=== PATIENT | female | born 1990 | race Caucasian/White ===

== ENCOUNTER → 2016-08-29 | Outpatient (CLI) | payer BC ==
[~2016-08-29] MED LIST: BCPILLS PO; IBUP600T44 PO; [UNRECOGNIZED DRUG - OTHER]
== END | disposition home or self-care (01) ==
LOC: C.LABSPEC 11:51
PROVIDERS: ATTEND Obstetrics & Gynecology
DX: Z01.419 Encounter for gynecological examination (general) (routine) without abnormal findings (principal)

== ENCOUNTER → 2016-09-23 | Outpatient (CLI) | payer BC ==
[2016-09-23 10:42] LABS: CALCULATED INSULIN SENSITIVITY 0.348; GLUCOSE LOG 1.9542; INSULIN FASTING 8.3 mU/L (3-25); INSULIN LOG 0.9191
== END | disposition home or self-care (01) ==
LOC: C.LAB1850 07:51
PROVIDERS: ATTEND Obstetrics & Gynecology
DX: Z31.41 Encounter for fertility testing (principal)

== ENCOUNTER → 2016-12-01 | Outpatient (CLI) | payer BC | LOC: C.LAB1850 07:32 | PROVIDERS: ATTEND Obstetrics & Gynecology | DX: Z31.41 Encounter for fertility testing (principal) ==

== ENCOUNTER → 2017-01-02 | Outpatient (CLI) | payer BC | END | disposition home or self-care (01) | LOC: C.LAB1850 10:15 | PROVIDERS: ATTEND Obstetrics & Gynecology | DX: Z32.01 Encounter for pregnancy test, result positive (principal) ==

== ENCOUNTER → 2017-02-10 | Outpatient (CLI) | payer BC ==
[2017-02-10 12:04] LABS: URINE APPEARANCE CLEAR (CLEAR); URINE BILIRUBIN NEG (NEG); URINE COLOR YELLOW; URINE NITRITE NEG (NEG); URINE PH 6.5 (4.5-7.5); URINE SPECIFIC GRAVITY 1.012 (1.000-1.030); UROBILINOGEN NEG (NEG)
[2017-02-10 12:13] LABS: MANUAL MICROSCOPIC REQUIRED? NO; REVIEW REQ? NO
== END | disposition home or self-care (01) ==
LOC: C.LABSPEC 11:08
PROVIDERS: ATTEND Obstetrics & Gynecology
DX: O09.01 Supervision of pregnancy with history of infertility, first trimester (principal); Z3A.00 Weeks of gestation of pregnancy not specified

== ENCOUNTER → 2017-02-17 | Outpatient (CLI) | payer BC ==
[2017-02-17 09:35] LABS: BASO % 0.2 %; BASO ABS # 0.01 K/uL (0-0.2); COMPLETE YES; EOS % 1.1 %; HEMATOCRIT 37.9 % (37-47); IG% 0.3 %; LYMPH % 24.5 %; LYMPH ABS # 1.62 K/uL (1.2-3.4); MEAN CELL VOLUME 89.4 fL (80-100); MEAN CORPUSCULAR HEMOGLOBIN 32.1 pg (25-34); MEAN CORPUSCULAR HGB CONC 35.9 g/dl (32-36); MEAN PLATELET VOLUME 9.2 fL (7.4-10.4); MONO % 8.3 %; NEUT % 65.6 %; PLATELET COUNT 216 K/uL (130-400); RED BLOOD COUNT 4.24 M/uL (4.2-5.4); WHITE BLOOD COUNT 6.62 K/uL (4.8-10.8)
[2017-02-20 08:03] LABS: CHLAMYDIA TRACH RNA*** NOT DETECTED (NOT DETECTED); GC (NEIS GONORRHOEAE)RNA** NOT DETECTED (NOT DETECTED)
== END | disposition home or self-care (01) ==
LOC: C.LAB1850 08:48
PROVIDERS: ATTEND Obstetrics & Gynecology
DX: O09.01 Supervision of pregnancy with history of infertility, first trimester (principal); Z3A.00 Weeks of gestation of pregnancy not specified

== ENCOUNTER → 2017-03-17 | Outpatient (CLI) | payer BC ==
[2017-03-17 11:43] LABS: GTGD 50 Grams
== END | disposition home or self-care (01) ==
LOC: C.LAB1850 09:10
PROVIDERS: ATTEND Obstetrics & Gynecology
DX: O09.01 Supervision of pregnancy with history of infertility, first trimester (principal)

== ENCOUNTER → 2017-06-13 | Outpatient (CLI) | payer BC ==
[~2017-06-13] MED LIST changes: +MTR600X PO; +OXYC-57 PO; +PRENTAB26 PO
[2017-06-13 10:08] LABS: HEMATOCRIT 32.3 % (37-47); HEMOGLOBIN 11.4 g/dL (12.0-16.0)
== END | disposition home or self-care (01) ==
LOC: C.LAB1850 08:45
PROVIDERS: ATTEND Obstetrics & Gynecology
DX: O09.02 Supervision of pregnancy with history of infertility, second trimester (principal); Z3A.00 Weeks of gestation of pregnancy not specified

== ENCOUNTER → 2017-08-04 | Outpatient (CLI) | payer BC ==
[~2017-08-04] MED LIST changes: -MTR600X PO; -OXYC-57 PO; -PRENTAB26 PO
== END | disposition home or self-care (01) ==
LOC: C.LABSPEC 10:47
PROVIDERS: ATTEND Obstetrics & Gynecology
DX: O09.03 Supervision of pregnancy with history of infertility, third trimester (principal)

== ENCOUNTER 2017-08-13 23:28 | Inpatient (IN) | payer BC ==
[~2017-08-13] VITALS: Ht 157.5 cm; Wt 73.5 kg
[2017-08-14] VITALS (16 sets, daily range): BP systolic 106–126; BP diastolic 56–78; PULSE 62–94; TEMP 36.4–37.1; O2SAT 94–97; Ht 157.5 cm; Wt 73.5 kg
[2017-08-14] MEDS ORDERED: CITRIC ACID/SODIUM CITRATE 15 ML UDC PO ONE
[2017-08-14] MEDS ORDERED: PRENTAB26 PO (00:10)
[2017-08-14] MEDS ORDERED: CEFAZOLIN IV 2,000 MG in SYRINGE 0 ML IV STA (00:10)
--- NOTE | 2017-08-14 00:24 | HISTORY & PHYSICAL EXAMINATION ---
DATE OF ADMISSION: 08/14/2017 HISTORY OF PRESENT ILLNESS: Randa presented to labor and delivery with spontaneous rupture of membranes at 37 weeks and 3 days. She was in a breech position. This was noted by Dr. Soriano at her last visit. She had been scheduled for a , unfortunately her water broke tonight and this was confirmed with [facility]. HISTORY: Uncomplicated. This is her first . PAST MEDICAL HISTORY: Healthy. No major surgeries and no major illnesses. ALLERGIES: No medication allergies. SOCIAL HISTORY: Nonsmoker, nondrinker. FAMILY HISTORY: Negative. PHYSICAL EXAMINATION: VITAL SIGNS: Stable. She is afebrile. Her blood pressure is stable and her weight is 161 pounds. CHEST: Clear. CARDIOVASCULAR: Normal rate and rhythm. No audible murmur. ABDOMEN: Gravid. heart rate tones reactive. CERVIX: Not assessed at this time. Ultrasound confirms breech presentation. IMPRESSION AND PLAN: Recommend section for rupture of membranes and breech presentation. Discussed risks including but not limited to the risks of bleeding, infection, injury to bowel, bladder, ureter, vessels, deep vein thrombosis and pulmonary embolus. Discussed alternatives, though I do not recommend labor in primary breech setting. The patient agrees. We will make arrangements for low segment transverse section.
[2017-08-14 00:25] LABS: BASO % 0.3 %; BASO ABS # 0.02 K/uL (0-0.2); EOS % 0.8 %; EOS ABS # 0.06 K/uL (0-0.5); HEMATOCRIT 35.1 % (37-47); HEMOGLOBIN 12.8 g/dL (12.0-16.0); IG# 0.06 K/uL (0.00-0.02); LYMPH % 24.2 %; LYMPH ABS # 1.92 K/uL (1.2-3.4); MEAN CELL VOLUME 90.2 fL (80-100); MEAN CORPUSCULAR HEMOGLOBIN 32.9 pg (25-34); MEAN PLATELET VOLUME 9.7 fL (7.4-10.4); MONO % 9.7 %; MONO ABS # 0.77 K/uL (0.11-0.59); NEUT % 64.2 %; NEUT ABS # 5.12 K/uL (1.4-6.5); PLATELET COUNT 172 K/uL (130-400); RED CELL DISTRIBUTION WIDTH CV 13.1 % (11.5-14.5); RED CELL DISTRIBUTION WIDTH SD 42.8 fL (36.4-46.3); WHITE BLOOD COUNT 7.95 K/uL (4.8-10.8)
[2017-08-14 00:31] LABS: MEAN CORPUSCULAR HGB CONC 36.5 g/dl (32-36)
[2017-08-14] MEDS ORDERED: OXYTOCIN INJ 10 UNITS/ML VIAL ONE (00:31)
[2017-08-14] MEDS ORDERED: FENTANYL CITRATE INJ 50 MCG/1 ML 2 ML VIAL ONE (00:32)
[2017-08-14] MEDS ORDERED: MoRPHine SULFATE PF 1 MG/ML 10 ML AMP/VIAL ONE (00:33)
[2017-08-14] MEDS ORDERED: EpHEDrine SULFATE 50MG/5ML SYR ONE (01:21)
[2017-08-14] MEDS ORDERED: PHENYLEPHRINE 100MCG/ML 5ML SYR ONE (01:21)
[2017-08-14] MEDS ORDERED: LACTATED RINGER'S 1000ML 1,000 ML IV SCH ×2 (01:46)
[2017-08-14] MEDS ORDERED: OXYTOCIN INJ 20 UNITS in LACTATED RINGER'S 1000ML 1,000 ML IV SCH (01:46)
--- NOTE | 2017-08-14 01:48 | [facility] Post Operative Brief Note ---
Immediate Operative Summary Operative Date Aug 14, 2017. Pre-Operative Diagnosis PRIMARY CAESAREAN SECTION FOR BREECH PRESENTATION AT 37.4 WEEKS GESATION RUPTURE OF MEMBRANES Post-Operative Diagnosis SAME ABOVE Procedure(s) Performed CAESAREAN SECTION low transverse DELIVERED VIABLE MALE [address] SALAZAR Dimpling Machine Operator Surgeon(s) . Estimated Blood Loss 500ml Findings Consistent with Post-Op Diagnosis Specimens PLACENTA-HOLD Drains Choudhary Anesthesia Type L&D Only EPID Exist Disposition Accompanied Pt To Recover: no Disposition: L&D
[2017-08-14] MEDS ORDERED: LACTATED RINGER'S 1000ML 500 ML IV PRN (01:56)
[2017-08-14] MEDS ORDERED: NALOXONE HCL INJ 0.08 MG in SYRINGE 1.8 ML IV PRN (01:56)
[2017-08-14] MEDS ORDERED: NALOXONE HCL INJ 1 MG in SODIUM CHLORIDE 0.9% 1000ML 1,000 ML IV PRN ×4 (01:56)
[2017-08-14] MEDS ORDERED: SODIUM CHLORIDE 0.9% 1000ML 1,000 ML IV PRN (01:56)
[2017-08-14] MEDS ORDERED: HYDROCORTISONE ACETATE 25 MG SUPP PR PRN (02:00)
[2017-08-14] MEDS ORDERED: NO NARCOTICS OR SEDATIVES SCH (02:00)
[2017-08-14] MEDS ORDERED: NALBUPHINE HCL INJ 10 MG/ML AMP IV PRN (02:00)
[2017-08-14] MEDS ORDERED: EpHEDrine SULFATE INJ 50 MG/ML AMP IV PRN (02:00)
[2017-08-14] MEDS ORDERED: PROMETHAZINE HCL INJ 25 MG in SODIUM CHLORIDE 0.9% 50ML 50 ML IV PRN ×2 (02:00→20:00)
[2017-08-14] MEDS ORDERED: MoRPHine SULFATE PF 1 MG/ML 10 ML AMP/VIAL EPI PRN (02:00)
[2017-08-14] MEDS ORDERED: BENZOCAINE 20% AER SPR 82.5 GM CAN EXT PRN (02:00)
[2017-08-14] MEDS ORDERED: SENNA 8.6 MG TAB PO PRN (02:00)
[2017-08-14] MEDS ORDERED: DiphenhydrAMINE HCL 50 MG/ML VIAL IV PRN ×2 (02:00→20:00)
[2017-08-14] MEDS ORDERED: SUPERCREAM 0.870 % 15GM JAR EXT PRN (02:00)
[2017-08-14] MEDS ORDERED: MAGNESIUM HYDROXIDE SUSP 30 ML UDC PO PRN (02:00)
[2017-08-14] MEDS ORDERED: ONDANSETRON INJ 2 MG/ML 2 ML VIAL IV PRN ×2 (02:00→20:00)
[2017-08-14] MEDS ORDERED: LANOLIN OINT EXT PRN (02:00)
[2017-08-14] MEDS ORDERED: NALOXONE HCL 0.4 MG/1 ML VIAL/CARP IV PRN (02:00)
--- NOTE | 2017-08-14 02:03 | Anesthesiology Progress Note ---
Anesthesia Post Op Note Date & Time Aug 14, 2017 at 02:02 Notes Mental Status: alert / awake / arousable, participated in evaluation Pt Amnestic to Procedure: Yes Nausea / Vomiting: adequately controlled Pain: adequately controlled Airway Patency, RR, SpO2: stable & adequate BP & HR: stable & adequate Hydration State: stable & adequate Neuraxial Anesthesia: was administered, sensory block is resolving Anesthetic Complications: no major complications apparent pt had anesthetic level to pinprick at T 10
--- NOTE | 2017-08-14 02:07 | OPERATIVE REPORT ---
DATE OF OPERATION: 08/14/2017 PREOPERATIVE DIAGNOSIS: Breech presentation, premature rupture of membranes at 37-1/2 weeks. POSTOPERATIVE DIAGNOSIS: Same. PROCEDURE: Low segment transverse section. SURGEON: Kentrell Scott MD. CHEESE PRODUCTION SUPERVISOR: None. ESTIMATED BLOOD LOSS: 500 mL. FINDINGS: Consistent with postoperative diagnosis. SPECIMENS: Cord gases and placenta. DRAINS: Choudhary catheter. ANESTHETIC: Spinal. DISPOSITION: L&D. DESCRIPTION OF PROCEDURE: The patient was given a spinal anesthetic, prepped and draped in supine position with a leftward tilt. Choudhary catheter had been placed by Dr. Scott. Pickups with teeth were used to check the skin incision and found to be adequate. Scalpel used to make a Pfannenstiel incision dissecting down through subcutaneous fat to the fascia in the midline. Fascia cut laterally with the curved Morelos scissors and then released superiorly and inferiorly from the rectus muscles with the curved Mayos. Rectus muscle split. Peritoneal cavity entered in a superior location, opening expanded to allow exposure. Bladder retractor placed. Bladder flap dissected away with Metzenbaums and scalpel used to make a low transverse incision on the uterus. Entry was done bluntly with the equipment operator wage hand's finger and then opening enlarged to allow exposure with the equipment operator wage hand's finger. Baby was in a charly breech presentation, was delivered by flexing the hips and then pressure on the abdomen by the graduate assistant and then rotating the back to anterior gentle traction and was able to deliver both legs and then I was able to sweep the arms medially across the chest. At this stage, I was able to gently flex the head by gently placing a finger in the mouth and then with pressure on the abdomen from the graduate assistant able to deliver the head without extension. Live vigorous male . Cord clamped and cut. Cord gases obtained. Cord blood obtained. Placenta removed with an IV Pitocin started. Please note 2 grams IV Ancef was given prior to the start of the procedure. Uterine tone improved. We ensured all placenta removed with a moist lap and then uterine incision closed with a double layer first layer, 0 Monocryl locked and second layer, 0 Monocryl nonlocked. After generous irrigation and suction of the cul-de-sac and bladder flap regions, uterus placed back in the peritoneal cavity. Hemostasis excellent at this stage. Rectus muscles were well reapproximated. Fascia closed with 0 Vicryl, subcutaneous fat irrigated and closed with 3-0 Vicryl, 4-0 subcuticular Monocryl closure and Steri-Strips. Urine clean at the end of the procedure, sponge and instrument counts correct. I attest to the content of the Intraoperative Record and any orders documented therein. Any exception s are noted below.
[2017-08-14] MEDS: SIMETHICONE 80 MG CHEW PO SCH ×4 (08:30→20:00)
[2017-08-14] MEDS: PRENATAL VITAMIN TAB PO SCH (08:30)
[2017-08-14] MEDS: DOCUSATE SODIUM 100 MG CAP PO SCH ×2 (08:31→20:00)
[2017-08-14] MEDS: KETOROLAC TROMETHAMINE 30 MG/ML VIAL IV. PRN ×2 (09:28→17:50)
[2017-08-14] MEDS ORDERED: MEPERIDINE HCL 50 MG/ML CARP IV PRN ×2 (20:00)
[2017-08-14] MEDS ORDERED: OXYCODONE/ACETAMINOPHEN 5-325 TAB PO PRN (20:00)
[2017-08-14] MEDS ORDERED: ZOLPIDEM TARTRATE 5 MG TAB PO PRN (20:00)
[2017-08-14] MEDS ORDERED: KETOROLAC TROMETHAMINE 30 MG/ML VIAL IV. PRN (20:00)
[2017-08-14] MEDS ORDERED: DC INTRASPINAL MORPHINE SCH (20:00)
--- NOTE | 2017-08-14 20:34 | Discharge Instructions ---
Discharge Instructions Date of Service Aug 14, 2017. Admission Reason for Admission: Breech Presentation Discharge Discharge Diagnosis / Problem: s/p Section Discharge Goals Goal(s): Routine recovery after Medications Continue Dispensed Medications: lansinoh Activity Recommendations Activity Limitations: per Instructions/Follow-up section . Instructions / Follow-Up Instructions / Follow-Up ACTIVITY RECOMMENDATIONS: * Gradual return to full activity over the next 2-3 weeks. * No lifting - nothing heavier than baby over the next 2-3 weeks. * Do not engage in vigorous exercise, sexual activity or sports until cleared by your physician. * Do not drive or operate any motorized equipment until cleared by your physician. * You may shower/bathe daily. MEDICATIONS: For discomfort or pain, you may use Acetaminophen (Tylenol), Ibuprofen (Advil), or Naproxen (Aleve) following the package directions. For constipation you may use Colace following the package directions. BREAST CARE: If you are not breast feeding: * Wear a supportive bra 24 hours a day for one to two weeks. * Avoid stimulating your breasts and nipples as much as possible during the first few weeks after delivery. * When taking a shower, have the warm water hit your back, not breasts. * When your breasts feel full, apply ice packs. Usually three to four times a day helps ease the discomfort. * Take a mild pain medication (Tylenol / Motrin) when you are uncomfortable. If breast feeding: * Use breast milk to lubricate nipples. Lansinoh cream may be used for sore nipples. You do not need to remove cream prior to breast feeding. If using a different brand of cream, check the label for directions regarding removal of cream prior to nursing. * Wear a supportive bra. * If having problems with breasts or breast feeding, call a remediation bioanalytics consultant or your health care provider. SPECIAL CARE INSTRUCTIONS: When you are discharged from the hospital, it is important for you to follow the instructions listed below: * During the first week at home, you should be able to care for yourself and your baby. In addition, the usual light household activities are encouraged. * Limit your activities to the way you feel. Do not try to clean the house or move furniture. Be sensible. * If you actively engage in sports and have done so up until the time of your delivery, you may resume these activities as soon as you feel able. This may take up to one month or even longer. Use good judgment. * Continue to take your vitamins for at least six weeks after the of your baby. * Your diet need not be limited unless you were on a special diet before your delivery. Breast-feeding mothers need around 2500 calories per day and at least 64-80 ounces of fluid per day (8 to 10 glasses). * You should eat foods from the four major food groups. Crash diets or fad diets are to be avoided. Eating lean meats, fresh fruits and vegetables, low-fat dairy products, high fiber foods and a regular exercise program, will help you get back to your pre- weight without putting your health at risk. * Constipation is sometimes a problem after delivery. Take a mild laxative as needed. If breast feeding, Milk of Magnesia is acceptable to use. You may use a suppository or Fleets enema. * A daily shower or tub bath is suggested. Wash incision daily with warm soapy water and pat dry. It doesn't need to be covered unless drainage is present. * A bloody vaginal discharge will usually continue until around four weeks . A small amount of bleeding may continue for as long as six weeks. Vaginal discharge changes from the bright red bleeding after delivery to pink then brownish and finally yellowish-pink before becoming white and disappearing. * Bleeding may increase with activity. Your first period may come in 4-8 weeks. If you are breast feeding, your period may be delayed even longer. * Parlier (sex) can begin whenever both you and your partner feel comfortable and do not have any form of genital infection. It is recommended that you wait at least six weeks for internal and external healing to occur. If you have questions, please talk to your health care practitioner. A condom should be used to prevent infection and . * Foreplay, gentle intercourse and lubrication is very important the first several times to prevent pain. A water-based lubricant such as K-Y jelly or Astroglide may be used. * If you have RH negative blood and your baby is RH positive, you will receive RHOGAM by injection prior to discharge. The nurse will give you a card to keep with you that has the date and place that you received RHOGAM after delivery. * During your care, you had a Rubella screen done to check for the presence of rubella antibodies in your blood. If your test was negative, you will receive a Rubella vaccine prior to discharge. This vaccine may cause a fever, soreness at the injection site and flu-like symptoms. If these symptoms persist, notify your health care practitioner. is not advised for one month after a Rubella vaccine. * Verbalizes understanding of car seat law as reviewed with patient nursing. * Car Seat hand-out given and reviewed with patient by nursing. * Shaken baby information reviewed with patient by nursing. Call you doctor if: * Heavy bleeding (saturating several pads an hour) or passing clots the size of your fist. * A fever >101 degrees F (38.3 degrees C) on two occasions four hours apart and /or chills. * Unusual pain in the pelvic or vaginal areas. * Call the doctor for any increased redness, drainage or swelling around the incision and any pain unrelieved by prescribed pain medication. * "Baby Blues" lasting longer than two weeks. If you have any questions or concerns, call your health care practitioner at . FOLLOW UP VISIT: * Please call the office at to schedule a 6 week examination. It is important you keep this appointment. It is important for you to make arrangements for either yearly or twice yearly check-ups thereafter. Current Hospital Diet Patient's current hospital diet: Regular OB Diet Discharge Diet Recommended Diet: Regular OB Diet Procedures Procedures Performed: CAESAREAN SECTION low transverse DELIVERED VIABLE MALE 0118 Pending Studies Studies pending at discharge: no Medical Emergencies . Who to Call and When: Medical Emergencies: If at any time you feel your situation is an emergency, please call 911 immediately. . Non-Emergent Contact Non-Emergency issues call your: Apartment Leasing Consultant . . "Provider Documentation" section prepared by Summer Montemayor. .
[2017-08-14] MEDS: OXYCODONE/ACETAMINOPHEN 5-325 TAB PO PRN (23:22)
[2017-08-15] MEDS: OXYCODONE/ACETAMINOPHEN 5-325 TAB PO PRN ×4 (06:32→23:42)
[2017-08-15] MEDS: IBUPROFEN 600 MG TAB PO PRN ×4 (06:33→23:42)
[2017-08-15] MEDS: PRENATAL VITAMIN TAB PO SCH (07:18)
[2017-08-15] MEDS: DOCUSATE SODIUM 100 MG CAP PO SCH ×2 (07:18→19:59)
[2017-08-15] MEDS: SIMETHICONE 80 MG CHEW PO SCH ×4 (07:18→19:59)
[2017-08-15 07:19] LABS: BASO % 0.1 %; BASO ABS # 0.02 K/uL (0-0.2); EOS % 0.4 %; EOS ABS # 0.05 K/uL (0-0.5); HEMOGLOBIN 12.1 g/dL (12.0-16.0); IG# 0.05 K/uL (0.00-0.02); LYMPH % 11.9 %; MEAN CELL VOLUME 92.6 fL (80-100); MEAN CORPUSCULAR HGB CONC 35.6 g/dl (32-36); MEAN PLATELET VOLUME 9.4 fL (7.4-10.4); MONO % 4.6 %; MONO ABS # 0.62 K/uL (0.11-0.59); NEUT % 82.6 %; NEUT ABS # 11.06 K/uL (1.4-6.5); PLATELET COUNT 176 K/uL (130-400); RED CELL DISTRIBUTION WIDTH CV 13.4 % (11.5-14.5); RED CELL DISTRIBUTION WIDTH SD 44.6 fL (36.4-46.3)
--- NOTE | 2017-08-15 07:32 | Progress Note ---
Subjective Aug 15, 2017. Subjective conversation w/ patient, physical exam, lab review Ambulation: ambulating normally Voiding: no voiding problems Passing Gas: Yes Diet Tolerance: Regular Diet Lochia: Small Feeding Type: Bottle Feeding Pain: controlled with oral pain meds. Objective Vital Signs Date Time Temp Pulse Resp B/P (MAP) Pulse Ox O2 Delivery O2 Flow Rate FiO2 08/14/17 23:10 36.4 90 18 111/76 (88) Room Air 08/14/17 23:10 Room Air 08/14/17 19:30 37.0 80 18 110/78 (89) 96 Room Air 08/14/17 19:30 18 96 08/14/17 17:20 16 97 08/14/17 16:20 18 96 08/14/17 15:45 37.1 94 18 126/75 (92) 97 Room Air 08/14/17 15:45 97 Room Air 08/14/17 15:45 18 97 08/14/17 15:09 37.0 85 20 119/71 (87) Room Air 08/14/17 14:20 18 96 08/14/17 13:20 20 97 08/14/17 12:15 18 96 08/14/17 11:15 36.6 62 16 118/74 (89) 96 Room Air 08/14/17 11:15 16 96 08/14/17 10:30 18 95 08/14/17 09:30 16 95 08/14/17 08:40 36.6 76 18 107/68 (81) 94 Room Air 08/14/17 08:40 94 Room Air 08/14/17 08:40 16 94 Physical Exam General Appearance: WELL-APPEARING, WD/WN, NO APPARENT DISTRESS Abdomen: non tender, soft Fundus: Firm, Non-Tender, Relation to Umbilicus (at u) Incision Description: Clean, Dry & Intact Extremities: non-tender, normal inspection, no pedal edema Laboratory Results Last 24 Hours Test 08/15/17 06:47 White Blood Count 13.40 K/uL Red Blood Count 3.67 M/uL Hemoglobin 12.1 g/dL Hematocrit 34.0 % Mean Corpuscular Volume 92.6 fL Mean Corpuscular Hemoglobin 33.0 pg Mean Corpuscular Hemoglobin Concent 35.6 g/dl Platelet Count 176 K/uL Mean Platelet Volume 9.4 fL Neutrophils (%) (Auto) 82.6 % Lymphocytes (%) (Auto) 11.9 % Monocytes (%) (Auto) 4.6 % Eosinophils (%) (Auto) 0.4 % Basophils (%) (Auto) 0.1 % Neutrophils # (Auto) 11.06 K/uL Lymphocytes # (Auto) 1.60 K/uL Monocytes # (Auto) 0.62 K/uL Eosinophils # (Auto) 0.05 K/uL Basophils # (Auto) 0.02 K/uL RDW Standard Deviation 44.6 fL RDW Coefficient of Variation 13.4 % Immature Granulocyte % (Auto) 0.4 % Immature Granulocyte # (Auto) 0.05 K/uL Assessment and Plan Post-Op Day#: 1 Continue Routine Care: Patient is ppd 1.5. Doing well. Routine care. Encourage ambulation.
[2017-08-15 08:43] VITALS: BP 127/78; PULSE 82; TEMP 36.3
[2017-08-15 15:25] VITALS: BP 115/77; PULSE 87; TEMP 37.1; O2SAT 98
[2017-08-15] MEDS ORDERED: BISACODYL 5 MG TABEC PO ONE (22:00)
[2017-08-15 23:50] VITALS: BP 123/75; PULSE 85; TEMP 36.5; O2SAT 99
[2017-08-16] MEDS: IBUPROFEN 600 MG TAB PO PRN ×2 (05:36→09:58)
[2017-08-16] MEDS: OXYCODONE/ACETAMINOPHEN 5-325 TAB PO PRN ×2 (05:36→09:59)
[2017-08-16 06:30] LABS: HEMATOCRIT 31.1 % (37-47); HEMOGLOBIN 11.2 g/dL (12.0-16.0)
[2017-08-16] MEDS ORDERED: MTR600X PO (07:48)
[2017-08-16] MEDS ORDERED: OXYC-57 PO (07:48)
[2017-08-16 08:00] VITALS: BP 116/79; PULSE 88; TEMP 36.9
--- NOTE | 2017-08-16 08:06 | Progress Note ---
Subjective Aug 16, 2017. Subjective conversation w/ patient, physical exam Ambulation: ambulating normally Voiding: no voiding problems Passing Gas: Yes Diet Tolerance: Regular Diet Lochia: Small Feeding Type: Bottle Feeding Pain: minimal, 1-2/10 Comment: Pt seen and examined at bedside, no acute events overnight Review of Systems Constitutional: No fever, No chills Respiratory: No cough, No shortness of breath Cardiac: No chest pain, No edema Abdomen: No pain, No nausea, No vomiting Female : No dysuria no STEWART or calf tenderness reported Objective Vital Signs Date Time Temp Pulse Resp B/P (MAP) Pulse Ox O2 Delivery O2 Flow Rate FiO2 08/15/17 23:50 99 Room Air 08/15/17 23:50 36.5 85 20 123/75 (91) 99 Room Air 08/15/17 15:25 98 Room Air 08/15/17 15:25 37.1 87 18 115/77 (90) 98 Room Air 08/15/17 08:43 36.3 82 18 127/78 (94) Physical Exam General Appearance: WELL-APPEARING, NO APPARENT DISTRESS Respiratory/Chest: chest non-tender, lungs clear, normal breath sounds Cardiovascular: regular rate, rhythm, no edema, no murmur Abdomen: normal bowel sounds, non tender, soft Fundus: Firm, Non-Tender, Relation to Umbilicus (2 cm below) Incision Description: Clean, Dry & Intact Extremities: normal range of motion, non-tender, normal inspection, no pedal edema, no calf tenderness Laboratory Results Last 24 Hours Test 08/16/17 06:20 Hemoglobin 11.2 g/dL Hematocrit 31.1 % Medications Current Inpatient Medications Medications (Trade) Dose Ordered Sig/[facility] Route Start Time Stop Time Status Last Admin Dose Admin Lactated Ringer's 1,000 ml @ 1,000 mls/hr Q1H IV 08/14/17 00:00 09/13/17 00:00 08/14/17 00:20 1,000 MLS/HR Oxytocin 20 units/ Lactated Ringer's 1,002 ml @ 125 mls/hr Q8H1M IV 08/14/17 01:46 09/13/17 01:45 08/14/17 03:17 125 MLS/HR Lactated Ringer's 1,000 ml @ 125 mls/hr Q8H IV 08/14/17 01:46 09/13/17 01:45 08/14/17 12:07 125 MLS/HR Ketorolac Tromethamine (Toradol Inj) 30 mg Q6H PRN IV. 08/14/17 20:00 08/19/17 19:59 Meperidine HCl (Demerol Inj) 50 mg Q4H PRN IV 08/14/17 20:00 08/28/17 19:59 Meperidine HCl (Demerol Inj) 75 mg Q4H PRN IV 08/14/17 20:00 08/28/17 19:59 Oxycodone/ Acetaminophen (Percocet 5-325mg Tab) 1 tab Q4H PRN PO 08/14/17 20:00 08/28/17 19:59 08/16/17 05:36 1 TAB Oxycodone/ Acetaminophen (Percocet 5-325mg Tab) 2 tab Q4H PRN PO 08/14/17 20:00 08/28/17 19:59 Ibuprofen (Motrin Tab) 600 mg Q4H PRN PO 08/14/17 02:00 09/13/17 01:59 08/16/17 05:36 600 MG Promethazine HCl 25 mg/Sodium Chloride 51 ml @ 204 mls/hr Q4H PRN IV 08/14/17 20:00 09/13/17 19:59 Ondansetron HCl (Zofran Inj) 4 mg Q4H PRN IV 08/14/17 20:00 09/13/17 19:59 Prenat Multivit/ [place]/Iron/Folic Ac ( Vitamin Tab) 1 tab DAILY PO 08/14/17 08:00 09/13/17 07:59 08/15/17 07:18 1 TAB Bisacodyl (Dulcolax Supp) [address] 08/16/17 22:45 09/15/17 22:44 Docusate Sodium (coLACE CAP) 100 mg BID PO 08/14/17 08:00 09/13/17 07:59 08/15/17 19:59 100 MG Magnesium Hydroxide (Milk Of Magnesia Susp) 30 ml HS PRN PO 08/14/17 02:00 09/13/17 01:59 Cocaine HCl (Supercream 0.870% Cr) BID PRN EXT 08/14/17 02:00 08/28/17 01:59 Lanolin (Lanolin Oint) PRN PRN EXT 08/14/17 02:00 09/13/17 01:59 Hydrocortisone Acetate (Anusol Hc Supp) [address] 08/14/17 02:00 09/13/17 01:59 Benzocaine (Dermoplast Aero Spr) 1 appln PRN PRN EXT 08/14/17 02:00 09/13/17 01:59 Zolpidem Tartrate (Ambien Tab) 5 mg HSZ PRN PO 08/14/17 20:00 09/13/17 19:59 Simethicone (Mylicon Chew Tab) 80 mg QID PO 08/14/17 08:00 09/13/17 08:59 08/15/17 19:59 80 MG Diphenhydramine HCl (Benadryl Cap) 25 mg QID PRN PO 08/14/17 20:00 09/13/17 19:59 Diphenhydramine HCl (Benadryl Inj) 25 mg QID PRN IV 08/14/17 20:00 09/13/17 19:59 Senna (Senokot Tab) 17.2 mg HS PRN PO 08/14/17 02:00 09/13/17 01:59 Morphine Sulfate (Duramorph Pf Inj) TODAY PRN EPI 08/14/17 02:00 Assessment and Plan Post-Op Day#: 2 Continue Routine Care: 27 yo F POD 2, s/p for breech presentation with PROM Pt doing clinically well Continue routine care Encourage ambulation, bottle feeding Pain control with rx prn Discharge instructions reviewed Resident Physician Supervision Note: I interviewed and examined the patient. Discussed with Dr. Montemayor and agree with findings and plan as documented in the note. Any exceptions or clarifications are listed here: D/C instruction and Rx's given to patient. F/U in 6 weeks Documented By: Isaiah Bess Resident Tracking Resident Involvement: Resident Care Provided Care Provided: OB Delivery
[2017-08-16] MEDS: PRENATAL VITAMIN TAB PO SCH (09:57)
[2017-08-16] MEDS: SIMETHICONE 80 MG CHEW PO SCH (09:57)
[2017-08-16] MEDS: DOCUSATE SODIUM 100 MG CAP PO SCH (09:57)
[2017-08-16 10:45] VITALS: BP_DIAS 79; PULSE 88; TEMP 36.9
[2017-08-16] MEDS ORDERED: BISACODYL 10 MG SUPP PR PRN (22:45)
--- NOTE | 2017-08-17 12:33 | DISCHARGE SUMMARY ---
Randa presented with ruptured membranes and onset of labor on the packaging inspector of 08/14/2017. A section was done as she was in breech presentation. The procedure was uncomplicated. The patient was discharged on 08/16/2017 as she met criteria at that time. She was ambulating well, tolerating an oral diet, minimal bleeding and pain. Pain was well controlled on oral pain medication. PHYSICAL EXAMINATION: VITAL SIGNS: Stable. She was afebrile. CHEST: Clear. CARDIOVASCULAR: Normal rate and rhythm. No audible murmur. ABDOMEN: Benign. Bowel sounds positive. Uterus nontender. Incision clean, dry and intact. EXTREMITIES: Negative. IMPRESSION AND PLAN: Postop day 2 from . Hemoglobin 11.2. Meets criteria. Discharge instructions reviewed. Pain medication given.
== END 2017-08-16 11:05 | disposition home or self-care (01) | DRG 766 ==
LOC: C.OPB 23:28 → C.LD 23:29 → C.OPB 08-14 00:10 → C.OBG 08-14 04:52
PROVIDERS: ADMIT Obstetrics & Gynecology; ATTEND Obstetrics & Gynecology
PROC: 10D00Z1 Extraction of Products of Conception, Low, Open Approach (ICD-10-PCS; principal; 2017-08-14 00:28)
DX: O32.1XX1 Maternal care for breech presentation, fetus 1 (principal); Z3A.37 37 weeks gestation of pregnancy; Z37.0 Single live birth

== ENCOUNTER 2021-06-04 13:46 | Inpatient (IN) ==
[2021-06-04] MEDS ORDERED: fentaNYL citrate 100 MCG/2 ML VIAL ONE (15:05)
[2021-06-04] MEDS ORDERED: ONDANSETRON INJ 2 MG/ML 2 ML VIAL ONE ×2 (15:05→16:55)
[2021-06-04] MEDS ORDERED: MoRPHine SULFATE PF 1 MG/ML 10 ML AMP/VIAL ONE (15:05)
[2021-06-04] MEDS ORDERED: LACTATED RINGER'S 1,000 ML IV SCH ×2 (15:15→19:06)
--- NOTE | 2021-06-04 15:16 | History & Physical Report ---
Date of Service June 04, 2021 Assessment & Plan (1) Previous delivery affecting , antepartum: (2) SROM (spontaneous rupture of membranes): (3) Insulin controlled gestational diabetes mellitus (GDM) during : Plan: 31 y/o at 39 1/7 wga presenting w/ SROM VSS Fetus cat 1 SROM - confirmed ruptured, move forward w/ delivery. Pt desires repeat CS and BTL. Discussed indications, risks, benefits, alternatives with risks including infection, bleeding, injury to adjacent structures (bowel, bladder, ureters, blood vessels, nerves, baby), possible need for blood transfusion and/or life saving hysterectomy, VTE, regret with tubal, inability to complete tubal. Consent reviewed in detail w/ pt and signed after all questions answered to her satisfaction. Plan for ancef and azithro for antibiotic prophylaxis GBS neg History of Present Illness Chief Complaint: LOF Primary Care Provider: Erik Lynch MD 31 y/o at 39 1/7 wga w/ RONEL 06/10 by LMP c/w 1st tri US presents w/ LOF. Had one gush at 530 this morning, didn't really have any further leaking until around 1pm when she had another gush but this time had brown discharge with it. Little further leaking afterward but not really continuous however after calling triage was instructed to present for eval. +FM and irreg ctx, denies any VB. 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 Hx: G1 2018 pLTCS at 37 wks for breech, srom G2 current q26-28d cycles denies hx STIs denies hx abnl pap, 03/2020 neg cytology Allergies Allergy/AdvReac Type Severity Reaction Status Date / Time Pertussis Vaccines Allergy Intermediate RASH Verified 06/03/21 08:42 Home Medications Medication Instructions Recorded Confirmed Type docosahexaenoic acid [ DHA] PO 10/23/20 06/03/21 History prenat.vits,tabitha,img-sftl-llcyn 1 tab PO DAILY 10/23/20 06/04/21 History acetone (urine) test (Ketone Urine #50 ea 03/26/21 06/03/21 Rx Test) blood sugar diagnostic (OneTouch #150 ea 03/26/21 06/03/21 Rx Verio test strips) blood-glucose meter (OneTouch #1 ea 03/26/21 06/03/21 Rx Verio Reflect Meter) lancets 33 gauge (OneTouch Delica #150 ea 03/26/21 06/03/21 Rx Lancets) insulin glargine 100 unit/mL (3 5 unit SUBCUT PM 06/04/21 06/04/21 History mL) subcutaneous pen (Lantus Solostar U-100 Insulin) Patient History Medical History Breast mass History of chicken pox Surgical History H/O oral surgery S/P section Family History Grandfather (Maternal) Bone cancer Mother Melanoma Aunt Colorectal cancer Denies family history of Ovarian cancer Breast cancer Social History Smoking Status: Former smoker Hx Alcohol Use: No Hx Substance Use: No Preferred Language: Lao Communication Ability: Effective Delivery And Installation Subcontractor Required: No Beliefs That Will Affect Care: None marital status: marital status details: Amauri Chowdary (36) [phone] Current Living Situation: Family Current Living Situation Comment: lives with spouse, son, dog, cat-spouse changing litter current occupational status: employed 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 Other Information That Helps Us Care for You: No Feels Safe at Home: Yes Safety Concerns: Feels Safe At This Time Assistive Devices: None Physical Exam Constitutional: WD/WN, vitals as above Respiratory: normal respiratory effort; no respiratory distress and no labored breathing Genitourinary: OB Exam Abdomen: + vertex Manual OB Exam: + cervical dilation 1 cm, + cervical effacement 70% and + station -2 OB Exam Monitor Tracing: + external FHT monitor used, + external uterine monitor used (irreg ctx) and + category I (135/mod/+accel/-decel) SSE nitrazine equiv, small amount of discharge but no pooling w/ valsalva, 1 fern noted > amnisure obtained and confirmed positive Results & Data ([facility]) Vital Signs (Past 12 Hours) Vital Signs Temp Pulse Resp BP 06/04/21 14:50 76 112/70 06/04/21 14:40 77 18 119/69 06/04/21 14:04 97.9 F 18 06/04/21 13:57 72 143/91 H Laboratory Results OB Labs: Blood Type O Positive 11/03/20 Antibody Screen NEGATIVE 11/03/20 Hemoglobin 11.2 g/dL (12.0-16.0) L 03/18/21 Hematocrit 33.0 % (37-47) L 03/18/21 Mean Corpuscular Volume 88.6 fL (80-100) 11/03/20 Platelet Count 278 K/uL (130-400) 11/03/20 Rubella IgG Antibody Immune (Immune) 11/03/20 A Rapid Plasma Reagin Nonreactive (Nonreactive) 11/03/20 Hepatitis B Surface Antigen Neg (Neg) 11/03/20 HIV (1&2) Ab and P24 Ag, 4th Gener Neg (Neg) 11/03/20 Glucose 1 Hour 50 gm Load 134 mg/dl (70-130) H 12/31/20 OB Optional Labs: Chlamydia trachomatis RNA NOT DETECTED (NOT DETECTED) 11/03/20 Neisseria gonorrhoeae RNA NOT DETECTED (NOT DETECTED) 11/03/20 Labs Reviewed: Declines cfDNA, cf/sma - SLN Diagnostic Findings 05/27 EFW 56%, post plac Coding Level of Care Code None Diagnoses Previous delivery affecting , antepartum O34.219 SROM (spontaneous rupture of membranes) Insulin controlled gestational diabetes mellitus (GDM) during O24.414
[2021-06-04] MEDS ORDERED: AZITHROMYCIN 500 MG in DEXTROSE 5% 250 ML IV ONE (15:30)
[2021-06-04] MEDS ORDERED: ceFAZolin 2000MG 2,000 MG/15 ML SYR IV SCH (15:30)
[2021-06-04] MEDS ORDERED: CITRIC ACID/SODIUM CITRATE 15 ML UDC PO SCH (15:30)
[2021-06-04 15:34] LABS: Basophils # (auto) 0.01 K/uL (0-0.2); Basophils % (auto) 0.1 %; Eosinophils # (auto) 0.03 K/uL (0-0.5); Eosinophils % (auto) 0.4 %; Hematocrit (blood only) 33.6 % (37-47); Hemoglobin 11.2 g/dL (12.0-16.0); Immature Granulocytes # (auto) 0.04 K/uL (0.00-0.02); Immature Granulocytes % (auto) 0.5 %; Lymphocytes # (auto) 1.45 K/uL (1.2-3.4); Lymphocytes % (auto) 18.4 %; Mean Corpuscular Hemoglobin 29.1 pg (25-34); Mean Corpuscular Volume 87.3 fL (80-100); Mean Platelet Volume 10.6 fL (7.4-10.4); Monocytes # (auto) 0.61 K/uL (0.11-0.59); Monocytes % (auto) 7.8 %; Neutrophils # (auto) 5.73 K/uL (1.4-6.5); Neutrophils % (auto) 72.8 %; Platelet Count 191 K/uL (130-400); RDW Coefficient of Variation 13.3 % (11.5-14.5); RDW Standard Deviation 42.7 fL (36.4-46.3); Red Blood Count 3.85 M/uL (4.2-5.4); White Blood Count 7.87 K/uL (4.8-10.8)
[2021-06-04 15:41] LABS: Mean Corpuscular Hgb Conc 33.3 g/dL (32-36)
--- NOTE | 2021-06-04 16:19 | Anesthesiology Consultation ---
Date of Service June 04, 2021 Assessment & Plan (1) Encounter for pre-operative examination: Chart Review Chart Review: Acceptable Risk for Surgery and Patient NOT seen in Pre Admission Testing Consults Requested none History Surgery Operation Date: 06/04/21 16:00 Proposed Procedures p Section in LD - Catie Grimes MD Height/Weight Height: 5 ft 3 in Weight: 75.296 kg Allergies Allergy/AdvReac Type Severity Reaction Status Date / Time Pertussis Vaccines Allergy Intermediate RASH Verified 06/03/21 08:42 Medications Home Medications Medication Instructions Recorded Confirmed Last Taken docosahexaenoic acid [ DHA] PO 10/23/20 06/03/21 Unknown prenat.vits,tabitha,xzy-oyrc-leclm 1 tab PO DAILY 10/23/20 06/04/21 06/03/21 acetone (urine) test (Ketone Urine #50 ea 03/26/21 06/03/21 Unknown Test) blood sugar diagnostic (OneTouch #150 ea 03/26/21 06/03/21 Unknown Verio test strips) blood-glucose meter (OneTouch #1 ea 03/26/21 06/03/21 Unknown Verio Reflect Meter) lancets 33 gauge (OneTouch Delica #150 ea 03/26/21 06/03/21 Unknown Lancets) insulin glargine 100 unit/mL (3 5 unit SUBCUT PM 06/04/21 06/04/21 06/03/21 mL) subcutaneous pen (Lantus Solostar U-100 Insulin) Active Medications Generic Name Dose Route Start Last Admin Trade Name Freq PRN Reason Stop Dose Admin Cefazolin Sodium 2,000 mg in 15 mls @ 3.75 mls/min 06/04/21 15:30 06/04/21 16:22 Ancef 2000mg IV 06/04/21 18:00 3.75 mls/min PREOP CÉSAR Administration NPO Date Last Intake of Fluids: 06/04/21 Time Last Intake of Fluids: 14:00 Date Last Intake of Solids: 06/04/21 Time Last Intake of Solids: 13:00 Past Medical History Medical History (Updated 06/04/21 @ 16:18 by Isaac Weston MD) Breast mass Encounter for pre-operative examination History of chicken pox Exercise / Class Metabolic Activity II 4-5 Yardwork/Stairs/Walk up hill Past Family History Family History Grandfather (Maternal) Bone cancer Mother Melanoma Aunt Colorectal cancer Denies family history of Ovarian cancer Breast cancer Past Surgical History Surgical History H/O oral surgery S/P section Past Anesthesia History No Hx of Anesthesia Complications and No Family Hx of Anesthesia Complications History of PONV No Hx of PONV and No Hx of Motion Sickness Social History Smoking Status: Former smoker Do You Dip or Chew Tobacco: No Hx Alcohol Use: No Hx Substance Use: No Physical Exam Vital Signs Last Vital Signs Temp 36.6 C 06/04/21 14:04 Pulse 76 06/04/21 14:50 Resp 18 06/04/21 14:40 BP 112/70 06/04/21 14:50 Testing Laboratory Results 06/04/21 15:20 Blood Type O Positive 06/04/21 15:20 Antibody Screen NEGATIVE 06/04/21 15:20 06/04/21 15:00 POC Glucose 73
[2021-06-04] MEDS ORDERED: PHENYLEPHRINE 100MCG/ML 5ML SYR ONE (16:55)
[2021-06-04] MEDS ORDERED: OXYTOCIN 10 UNITS/ML 10ML VIAL ONE (16:55)
[2021-06-04] MEDS ORDERED: diphenhydrAMINE 50 MG/ML VIAL IV PRN ×2 (17:05→19:06)
[2021-06-04] MEDS ORDERED: MoRPHine SULFATE 2 MG/ML CARP IV PRN (17:05)
[2021-06-04] MEDS ORDERED: ONDANSETRON INJ 2 MG/ML 2 ML VIAL IV PRN (17:05)
[2021-06-04] MEDS ORDERED: NALOXONE HCL 1 MG in SODIUM CHLORIDE 0.9% 1000ML 1,000 ML IV PRN (17:05)
[2021-06-04] MEDS ORDERED: NALBUPHINE HCL INJ 10 MG/ML AMP IV PRN (17:05)
[2021-06-04] MEDS ORDERED: LACTATED RINGER'S 500 ML IV PRN (17:05)
[2021-06-04] MEDS ORDERED: PROMETHAZINE HCL 6.25 MG in SODIUM CHLORIDE 0.9% 50 ML IV PRN (17:05)
[2021-06-04] MEDS ORDERED: ePHEDrine sulfate 50 MG/ML AMP IV PRN (17:05)
[2021-06-04] MEDS ORDERED: NALOXONE HCL 0.4 MG/1 ML VIAL/CARP IV PRN (17:05)
[2021-06-04] MEDS ORDERED: MoRPHine SULFATE PF 1 MG/ML 10 ML AMP/VIAL INT SPINAL ONE (17:05)
[2021-06-04] MEDS ORDERED: NALOXONE HCL 0.08 MG in SYRINGE 1.8 ML IV PRN (17:05)
[2021-06-04] MEDS ORDERED: DC INTRASPINAL MORPHINE SCH (17:15)
[2021-06-04] MEDS ORDERED: SODIUM CHLORIDE 0.9% 1000ML 1,000 ML IV SCH (17:15)
[2021-06-04] MEDS ORDERED: NO NARCOTICS OR SEDATIVES SCH (17:15)
--- NOTE | 2021-06-04 18:14 | Anesthesiology Progress Note ---
Date of Service June 04, 2021 Anesthesia Post Procedure Vital Signs Vital Signs: Temp Pulse Resp BP Pulse Ox 06/04/21 18:11 61 116/55 L 93 06/04/21 14:50 76 112/70 06/04/21 14:40 77 18 119/69 06/04/21 14:04 36.6 C 18 06/04/21 13:57 72 143/91 H Notes Mental Status: alert / awake / arousable and participated in evaluation Patient Amnestic to Procedure: No Nausea / Vomiting: adequately controlled Pain: adequately controlled Airway Patency, RR, SpO2: stable & adequate BP & HR: stable & adequate Hydration State: stable & adequate Neuraxial Anesthesia: was administered and sensory block is resolving Anesthetic Complications: no major complications apparent and Pt Satisfied with anesthetic care
--- NOTE | 2021-06-04 18:32 | Operative Report ---
PG Post Operative Report Pre & Post Diagnosis Operation Date: 06/04/21 16:00 Pre-Op Diagnosis: Single intrauterine at 39 weeks, rupture of membranes, repeat c/s, desires permanent sterilization Post-Op Diagnosis: Single intrauterine at 39 weeks, rupture of membranes, repeat c/s, desires permanent sterilization I identified the patient and participated in the time-out.: Yes Procedure Operation Date: 06/04/21 16:00 Actual Procedures p Repeat Low Transverse Section with bilateral tubal ligation, removal of left paratubal cyst in LD of live female child at 1702 in OR 3 - Catie Grimes MD Surgeon Catie Grimes MD [employer] Dress Belt Maker RN Estimated Blood Loss 500 Findings Consistent with Post-Op Diagnosis Mild rectus adhesions. Normal appearing uterus, bilateral fallopian tubes, and ovaries. L paratubal cyst noted. Viable female with APGARS of 8 and 9 Fluids UOP 200cc by atkins catheter Specimens Right and left fallopian tubes, cord blood, left paratubal cyst Drains Atkins draining clear urine Anesthesia Type Spinal Complications none Disposition Accompanied Patient To Recovery: Yes Disposition: L&D Indications 31 y/o at 39 1/7 wga presented today with complaints of leaking of fluid. +FM, denied regular ctx or VB. SSE demonstrated equivocal nitrazine and pooling, one area of ferning and so amnisure was performed which confirmed SROM. She was scheduled for repeat CS and BTL and continued to desire this. Description of Procedure The patient was taken to the operating room after consents were ensured. The patient was properly identified. Spinal anesthesia was obtained without difficulty. The patient was placed in a dorsal supine position with left lateral tilt, then prepped and draped in normal sterile fashion. Surgical time out was performed. Antibiotics were given for prophylaxis. Anesthesia was tested to ensure adequate surgical levels. Pfannenstiel skin incision was performed and carried down to the underlying fascia with a knife. The fascia was then nicked in the midline and extended laterally with pickups and Morelos scissors. Superior portion of the fascia was grasped with Kochers x2 and elevated off the underlying rectus muscles using blunt dissection and scissors. Inferior portion of the fascia was then grasped with Christopher clamps x2 and also elevated off the underlying muscles with blunt dissection and scissors. Midline was identified. The peritoneum was then entered sharply and extended to provide adequate room for delivery of baby. The hand was inserted into the abdomen, uterus was noted to be clear of adhesions. Bladder blade was inserted, bladder flap was created in the usual fashion. A low transverse uterine incision was made in the uterus and extended bluntly in a superior to inferior fashion. Amniotomy was made with clear fluid at the time of rupture. head was grasped and elevated through the hysterotomy in an atraumatic fashion. The baby delivered in ADRYAN position, no nuchal cord. Remainder of the body delivered without incident. Nose and mouth were bulb suctioned on the surgical field. The cord was double clamped and cut, baby was handed off to awaiting pediatrics staff. Cord segment and blood were obtained. Placenta was then expressed from the uterus. The uterus was exteriorized. Several passes were made inside the uterus to remove the remaining membranes. Attention was then turned to the hysterotomy, which was then closed with a running locked suture of 0 Vicryl on a CTX needle. An imbricating layer was then performed using 0-Monocryl. There was noted to be good hemostasis. The posterior cul-de-sac was then inspected and cleaned of clot and debris. Attention was then turned to the left fallopian tube which was followed out to the fimbriated end. An avascular portion of the mesosalpinx was grasped with a neo and a window was created. The left fallopian tube was excised using the modified chen method and handed off for pathology. Tubal site was excellently hemostatic. The same procedure was then performed on the right fallopian tube and that tubal site was hemostatic. The left paratubal cyst was then cauterized off and handed off for pathology. The hysterotomy was again inspected and noted to be hemostatic. Tubal sites were again hemostatic. The uterus was returned to the abdomen. The right and left pericolic gutters were cleaned of all clot and debris. The hysterotomy and bilateral tubal sites were again noted to be hemostatic. Space of Retzius was noted to be hemostatic. The fascia was then closed with a running suture of 0 Vicryl on a CT1 needle. Subcutaneous tissue was copiously irrigated and noted to be hemostatic. Subcutaneous tissue was re- approximated using 2-0 plain gut. The skin was then closed with a running suture of 3-0 Monocryl in a subcuticular fashion. At termination of the procedure, the fundal pressure was applied and a moderate amount of lochia was expressed. Pressure dressing was applied to the patient. She tolerated the procedure well. All sponge, needle, instrument counts were correct x 2. I attest to the content of the Intraoperative Record and any orders documented therein. Any exceptions are noted below. OB Procedure Charges [id number] Add on Tubal for C/S
[2021-06-04] MEDS ORDERED: OXYTOCIN 20 UNITS in LACTATED RINGER'S 1,000 ML IV SCH (19:06)
[2021-06-04] MEDS ORDERED: SENNA 8.6 MG TAB PO PRN (19:06)
[2021-06-04] MEDS ORDERED: HYDROCORTISONE ACETATE 25 MG SUPP PR PRN (19:06)
[2021-06-04] MEDS ORDERED: BENZOCAINE 20% AER SPR 82.5 GM CAN EXT PRN (19:06)
[2021-06-04] MEDS ORDERED: SUPERCREAM 0.870% 15 GM JAR EXT PRN (19:06)
[2021-06-04] MEDS ORDERED: MAGNESIUM HYDROXIDE SUSP 30 ML UDC PO PRN (19:06)
[2021-06-04] MEDS: KETOROLAC 30 MG/ML VIAL IV PRN (20:23)
[2021-06-04] MEDS: SIMETHICONE 80 MG CHEW PO SCH (21:59)
[2021-06-04] MEDS: DOCUSATE SODIUM 100 MG CAP PO SCH (21:59)
[2021-06-05] MEDS: KETOROLAC 30 MG/ML VIAL IV PRN ×2 (03:31→10:03)
[2021-06-05 06:30] LABS: Basophils # (auto) 0.01 K/uL (0-0.2); Basophils % (auto) 0.1 %; Eosinophils # (auto) 0.02 K/uL (0-0.5); Eosinophils % (auto) 0.2 %; Hematocrit (blood only) 29.6 % (37-47); Hemoglobin 9.8 g/dL (12.0-16.0); Immature Granulocytes # (auto) 0.02 K/uL (0.00-0.02); Immature Granulocytes % (auto) 0.2 %; Lymphocytes % (auto) 9.2 %; Mean Corpuscular Hemoglobin 28.7 pg (25-34); Mean Corpuscular Hgb Conc 33.1 g/dL (32-36); Mean Corpuscular Volume 86.5 fL (80-100); Mean Platelet Volume 10.6 fL (7.4-10.4); Monocytes # (auto) 0.46 K/uL (0.11-0.59); Monocytes % (auto) 5.3 %; Platelet Count 149 K/uL (130-400); RDW Coefficient of Variation 13.4 % (11.5-14.5); RDW Standard Deviation 42.7 fL (36.4-46.3); Red Blood Count 3.42 M/uL (4.2-5.4); White Blood Count 8.71 K/uL (4.8-10.8)
--- NOTE | 2021-06-05 07:26 | Obstetrical Progress Note ---
Date of Service June 05, 2021 Assessment & Plan (1) state: 31 yo POD1 from rLTCS/BTL, doing well -Continue routine CS care, for atkins and dressing removal, ambulation today -O+/rubella immune/ -f/u 6 weeks for appt Subjective Ambulation: limited ambulation (not yet ambulated ) Voiding: atkins catheter in place Passing Gas:: No Diet Tolerance:: clear liquids Lochia:: Small Feeding Type:: breast feeding Pain well managed with medication Review of Systems Denies fevers, chills, n/v, STEWART, CP, SOB Physical Exam Constitutional WD/WN, vitals as above no acute distress Respiratory normal respiratory effort, lungs clear to auscultation Cardiovascular RRR, no murmur, no edema Gastrointestinal (Abdomen) Percussion/Palpation: abdomen soft; abdomen nontender fundus firm at umbilicus and NT, reinforced dressing c/d/i Musculoskeletal BLE symmetric, nonerythematous, nontender Results & Data ([facility]) Vital Signs (Past 12 Hours) Vital Signs Temp Pulse Pulse Resp BP BP Pulse Ox 06/05/21 06:05 18 96 06/05/21 05:10 18 97 06/05/21 04:20 18 96 06/05/21 03:30 97.9 F 66 18 117/75 97 06/05/21 02:20 16 96 06/05/21 01:20 18 96 06/05/21 00:30 97.9 F 75 18 111/72 97 06/04/21 23:20 18 96 06/04/21 22:05 18 99 06/04/21 21:15 18 99 06/04/21 20:40 97.7 F 75 19 118/79 99 06/04/21 20:19 73 129/81 06/04/21 20:16 81 100 06/04/21 20:15 97.5 F L 16 06/04/21 20:11 97 H 99 06/04/21 20:09 87 126/75 06/04/21 20:06 93 H 100 06/04/21 20:01 97 H 99 06/04/21 19:59 78 120/69 06/04/21 19:56 90 99 06/04/21 19:51 92 H 99 06/04/21 19:49 78 120/68 06/04/21 19:46 83 96 06/04/21 19:45 18 06/04/21 19:41 82 99 06/04/21 19:39 86 124/84 06/04/21 19:36 85 99 06/04/21 19:31 78 99 06/04/21 19:29 81 127/80 06/04/21 19:26 90 98
[2021-06-05] MEDS: FERROUS SULFATE 325 MG TAB PO SCH (08:35)
[2021-06-05] MEDS: SIMETHICONE 80 MG CHEW PO SCH ×3 (08:35→20:44)
[2021-06-05] MEDS: PRENATAL VITAMIN 1 TAB PO SCH (08:35)
[2021-06-05] MEDS: DOCUSATE SODIUM 100 MG CAP PO SCH ×2 (08:35→20:43)
[2021-06-05] MEDS ORDERED: PROMETHAZINE HCL 25 MG in SODIUM CHLORIDE 0.9% 50 ML IV PRN (11:05)
[2021-06-05] MEDS ORDERED: diphenhydrAMINE Capsule 25 MG CAP PO PRN (11:05)
[2021-06-05] MEDS ORDERED: ONDANSETRON INJ 2 MG/ML 2 ML VIAL IV PRN (11:05)
[2021-06-05] MEDS ORDERED: KETOROLAC 30 MG/ML VIAL IV PRN (11:05)
[2021-06-05] MEDS: IBUPROFEN 600 MG TAB PO PRN ×2 (15:49→20:43)
[2021-06-05] MEDS: oxyCODONE/ACETAMINOPHEN 5mg/325mg TAB PO PRN ×2 (15:50→20:43)
[2021-06-05] MEDS ORDERED: bisacodyL 5 MG TABEC PO SCH (20:00)
[2021-06-06] MEDS: IBUPROFEN 600 MG TAB PO PRN ×3 (00:16→08:56)
[2021-06-06] MEDS: oxyCODONE/ACETAMINOPHEN 5mg/325mg TAB PO PRN ×3 (00:16→08:57)
[2021-06-06] MEDS: PRENATAL VITAMIN 1 TAB PO SCH (07:51)
[2021-06-06] MEDS: DOCUSATE SODIUM 100 MG CAP PO SCH (07:51)
[2021-06-06] MEDS: FERROUS SULFATE 325 MG TAB PO SCH (07:51)
[2021-06-06] MEDS: SIMETHICONE 80 MG CHEW PO SCH (07:51)
--- NOTE | 2021-06-06 07:52 | Obstetrical Progress Note ---
Date of Service June 06, 2021 Assessment & Plan (1) state: Postoperative from section patient meets discharge criteria as she is ambulating well tolerating an oral diet has minimal bleeding and no extremity pain. Discharge instructions were reviewed and prescriptions were sent to her pharmacy of choice patient advised to call with any concerns and follow-up in the office discussed Subjective Ambulation: ambulating normally Voiding: no voiding problems Passing Gas:: Yes Diet Tolerance:: regular diet Lochia:: Small Feeding Type:: breast feeding Current Pain Level(1-10): 1 Physical Exam Gastrointestinal (Abdomen) normal bowel sounds, soft, nontender, no hepatosplenomegaly (incision cdi) Results & Data ([facility]) Vital Signs (Past 12 Hours) Vital Signs Temp Pulse Pulse Resp BP Pulse Ox 06/06/21 00:10 97.7 F 85 18 109/66 97 06/05/21 20:15 98.2 F 88 18 121/77 98
[2021-06-06] MEDS ORDERED: bisacodyL 10 MG SUPP PR PRN (18:20)
--- NOTE | 2021-06-07 11:40 | Discharge Summary ---
Date of Service June 07, 2021 Admission HPI Per Admitting Provider 31 y/o at 39 1/7 wga w/ RONEL 06/10 by LMP c/w 1st tri US presents w/ LOF. Had one gush at 530 this morning, didn't really have any further leaking until around 1pm when she had another gush but this time had brown discharge with it. Little further leaking afterward but not really continuous however after calling triage was instructed to present for eval. +FM and irreg ctx, denies any VB. 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: G1 2018 pLTCS at 37 wks for breech, srom G2 current q26-28d cycles denies hx STIs denies hx abnl pap, 03/2020 neg cytology Admission Exam (Per Admitting) Constitutional WD/WN, vitals as above no acute distress Respiratory normal respiratory effort, lungs clear to auscultation normal respiratory effort; no respiratory distress and no labored breathing Cardiovascular RRR, no murmur, no edema Gastrointestinal (Abdomen) Percussion/Palpation: abdomen soft; abdomen nontender Genitourinary OB Exam Abdomen: + vertex Manual OB Exam: + cervical dilation + 1 cm, + cervical effacement + 70% and + station + -2 OB Exam Monitor Tracing: + external FHT monitor used, + external uterine monitor used (irreg ctx) and + category I (135/mod/+accel/-decel) Discharge Data Consultations 06/04/21 15:13 Consult Anesthesiology Stat Procedures Performed Operation Date: 06/04/21 16:00 Actual Procedures p Repeat Low Section with Bilateral tubal ligation in LD of live female child at 1702 in OR 3 - Catie Grimes MD Hospital Course (1) Previous delivery affecting , antepartum: Pt was admitted and underwent above procedure. Postop course was uncomplicated and was discharged home on POD2 Coding Level of Care Code None Diagnoses Previous delivery affecting , antepartum O34.219
== END 2021-06-06 10:06 | disposition home or self-care (01) | DRG 785 ==
LOC: OPB 13:46 → 4S1 13:47 → 4S2 20:30